=== PATIENT | female | born 1955 | race Caucasian/White ===

== ENCOUNTER 2017-10-31 09:58 | Day surgery (SDC) | payer BC ==
[2017-10-29 08:06] LABS: BASOPHILS % (AUTO) 0.8 % (0-1); EOSINOPHILS # (AUTO) 0.1 X10'3 (0-0.9); EOSINOPHILS % (AUTO) 2.4 % (0-6); HEMATOCRIT 41.4 % (35.0-45.0); HEMOGLOBIN 14.4 g/dl (12.0-16.0); LYMPHOCYTES # (AUTO) 1.7 X10'3 (1.1-4.8); LYMPHOCYTES % (AUTO) 38.6 % (21-51); MEAN CORPUSCULAR HEMOGLOBIN 31.2 PG (27.0-31.0); MEAN CORPUSCULAR HGB CONC 34.7 % (33.0-36.5); MEAN CORPUSCULAR VOLUME 89.8 FL (78-98); MEAN PLATELET VOLUME 8.2 FL (7.4-10.4); MONOCYTES # (AUTO) 0.3 X10'3 (0-0.9); MONOCYTES % (AUTO) 6.1 % (2-12); NEUTROPHILS # (AUTO) 2.3 X10'3 (1.8-7.7); NEUTROPHILS % (AUTO) 52.1 % (42-75); PLATELET COUNT 228 X10'3 (140-440); RED BLOOD COUNT 4.61 X10'6 (4.20-5.60); RED CELL DISTRIBUTION WIDTH 12.9 % (11.5-14.5); WHITE BLOOD COUNT 4.4 X10'3 (4.5-11.0)
[2017-10-29 08:15] LABS: ANION GAP 7 (8-16); BLOOD UREA NITROGEN 11 MG/DL (7-18); BUN/CREATININE RATIO 8.9 (6.6-38.0); CALCIUM 9.2 MG/DL (8.5-10.1); CHLORIDE 106 MMOL/L (99-107); CREATININE 1.23 MG/DL (0.40-0.90); GLUCOSE 99 MG/DL (70-104); PARTIAL THROMBOPLASTIN TIME 27 SECONDS (22-32); POTASSIUM 4.2 MMOL/L (3.5-5.1); PROTHROMBIN TIME 10.2 SECONDS (9.0-12.0); SODIUM 141 MMOL/L (135-145); TOTAL CARBON DIOXIDE 27.7 MMOL/L (24-32); eGFR 44 ML/MIN
[~2017-10-31] VITALS: Ht 172.7 cm; Wt 48.1 kg
[2017-10-31] MEDS ORDERED: normal saline 1000ml 1,000 ML IV SCH ×2 (10:15→17:10)
[2017-10-31] MEDS ORDERED: LORazepam 0.5 MG tablet PO PRN ×2 (10:15→11:50)
[2017-10-31] MEDS ORDERED: diphenhydrAMINE 25mg capsule PO PRN ×2 (10:15→11:50)
[2017-10-31] MEDS ORDERED: APIX5TAB3 PO (10:33)
[2017-10-31] MEDS ORDERED: LEVO50TA PO (10:33)
[2017-10-31] MEDS ORDERED: ZOLP10TA5 PO (10:33)
[2017-10-31] MEDS ORDERED: CITA-311 PO (10:33)
[2017-10-31] MEDS ORDERED: ATOR20TA PO (10:33)
[2017-10-31] MEDS ORDERED: sod bicarbonate 150mEq in D5W 1,150 ML IV ONE (11:50)
[2017-10-31] MEDS ORDERED: acetylcysteine 200 MG/ml 4ml vial PO SCH (12:00)
[2017-10-31] MEDS ORDERED: nitroGLYCERIN-Tridil 50MG/D5W 250 ML IV ONE (12:04)
[2017-10-31] MEDS ORDERED: iohexol 350 MG/ML 50ML vial IV ONE (12:05)
[2017-10-31] MEDS ORDERED: heparin 1,000unit/ml 10ml vial 10 ML ONE (12:05)
[2017-10-31] MEDS ORDERED: iohexol 350MG/ML 100ml bottle IV ONE (12:05)
[2017-10-31] MEDS ORDERED: LIDOcaine 1% w/EPI 1:100,000 30ml vial (MDV) ONE (12:05)
[2017-10-31] MEDS ORDERED: midazolam 2 mg/2 ml injection ONE (15:40)
[2017-10-31] MEDS ORDERED: fentaNYL/PF 50MCG/1 ML 2ML syringe ONE (15:41)
[2017-10-31] MEDS ORDERED: zolpidem 5mg tablet PO PRN (17:15)
[2017-10-31 18:00] VITALS: BP 127/48
[2017-10-31] MEDS ORDERED: atorvastatin 20mg tablet PO SCH (21:00)
[2017-11-01] MEDS ORDERED: levoTHYROXINE 25mcg tablet PO SCH (07:00)
[2017-11-01] MEDS ORDERED: CITALOpram 10mg tablet PO SCH (08:00)
[2017-11-02] MEDS ORDERED: apixaban 5mg tablet PO SCH (08:00)
== END 2017-10-31 21:30 | disposition home or self-care (01) ==
LOC: SSTAY O 09:58 → PCU 3S 17:27 → SSTAY O 21:30
PROVIDERS: ATTEND Internal Medicine Cardiovascular Disease
CPT/HCPCS: 36415 ×2; 80048 ×2; 85025 ×2; 85610 ×2; 85730 ×2; 93005 ×2; 93458 ×2; 99152 ×2; 99153 ×2; A4620; A6257 ×2; C1760 ×2; C1769 ×2; J1644 ×2; J2250 ×2; J3010 ×2; J3490 ×2; J7030 ×2; Q0163 ×2; Q9967 ×2

== ENCOUNTER 2019-09-03 15:00 | Emergency (ER) | payer BC, OTHER ==
[~2019-09-03] VITALS: Ht 172.7 cm; Wt 109.1 kg
[~2019-09-03 15:00] MED LIST: APIX5TAB3 PO; ATOR20TA PO; CITA-311 PO; CYCL-1 PO; LEVO50TA PO; ZOLP10TA5 PO
[2019-09-03 16:35] LABS: BASOPHILS % (AUTO) 0.8 % (0-1); EOSINOPHILS # (AUTO) 0.2 X10'3 (0-0.9); EOSINOPHILS % (AUTO) 2.8 % (0-6); HEMATOCRIT 41.5 % (35.0-45.0); HEMOGLOBIN 13.9 g/dl (12.0-16.0); LYMPHOCYTES # (AUTO) 2.1 X10'3 (1.1-4.8); LYMPHOCYTES % (AUTO) 37.2 % (21-51); MEAN CORPUSCULAR HEMOGLOBIN 31.1 PG (27.0-31.0); MEAN CORPUSCULAR HGB CONC 33.6 g/dL (33.0-36.5); MEAN CORPUSCULAR VOLUME 92.5 FL (78-98); MEAN PLATELET VOLUME 8.4 FL (7.4-10.4); MONOCYTES # (AUTO) 0.4 X10'3 (0-0.9); MONOCYTES % (AUTO) 7.3 % (2-12); NEUTROPHILS # (AUTO) 2.9 X10'3 (1.8-7.7); NEUTROPHILS % (AUTO) 51.9 % (42-75); PLATELET COUNT 247 X10'3 (140-440); RED BLOOD COUNT 4.48 X10'6 (4.20-5.60); WHITE BLOOD COUNT 5.6 X10'3 (4.5-11.0)
--- NOTE | 2019-09-03 16:43 | NUR ---
Ultrasound at bedside.
[2019-09-03 16:47] LABS: ALANINE AMINOTRANSFERASE 18 U/L (12-78); ALBUMIN 3.9 G/DL (3.4-5.0); ALBUMIN/GLOBULIN RATIO 1.1 (1.1-1.5); ALKALINE PHOSPHATASE 82 IU/L (46-116); ANION GAP 3 (8-16); ASPARTATE AMINO TRANSFERASE 12 U/L (10-37); BILIRUBIN,TOTAL 0.3 MG/DL (0.1-1.0); BLOOD UREA NITROGEN 18 MG/DL (7-18); BUN/CREATININE RATIO 15.9 (6.6-38.0); CALCIUM 8.7 MG/DL (8.5-10.1); CHLORIDE 107 MMOL/L (99-107); CREATININE 1.13 MG/DL (0.40-0.90); GLUCOSE 113 MG/DL (70-104); POTASSIUM 4.4 MMOL/L (3.5-5.1); SODIUM 142 MMOL/L (135-145); TOTAL CARBON DIOXIDE 31.6 MMOL/L (24-32); TOTAL PROTEIN 7.3 G/DL (6.4-8.2); eGFR 48 ML/MIN
[2019-09-03 17:42] VITALS: BP 140/60
== END 2019-09-03 17:44 | disposition home or self-care (01) ==
LOC: ER 15:01
DX: M79.604 Pain in right leg (principal); M79.89 Other specified soft tissue disorders; I10 Essential (primary) hypertension; J45.909 Unspecified asthma, uncomplicated; K21.9 Gastro-esophageal reflux disease without esophagitis; F17.200 Nicotine dependence, unspecified, uncomplicated; Z90.710 Acquired absence of both cervix and uterus; Z98.890 Other specified postprocedural states; Z79.899 Other long term (current) drug therapy
CPT/HCPCS: 36415; 80053; 83880; 84484; 85025; 85610; 93971; 99284